=== PATIENT | female | born 1960 | race Caucasian/White ===

== ENCOUNTER 2020-01-03 16:20 | Outpatient (CLI) | payer BC, SELFPAY ==
--- NOTE | 2020-01-03 16:28 | XR_ITS ---
WS: [id number] XR tibia fibula LT 2V [id number] REASON FOR EXAM: FALL/CONTUSION LEFT LEG FINDINGS: On the upper one third of the anterior soft tissue of the tibia is swelling and air suggest ing a contused area with possible open lesion. The remaining tibia fibula are normal there is no fractures seen involving the knee are ankle are sha fts. XR/XR tibia fibula LT 2V 10188 IMPRESSION: Tissue injury involving the upper one third of the anterior tibia.
== END 2020-01-03 16:21 | disposition home or self-care (01) ==
LOC: RAD 16:25
PROVIDERS: Family Provider Nurse Practitioner Family; PCP Nurse Practitioner Family; Visit Provider Nurse Practitioner Family
DX: S80.12XA Contusion of left lower leg, initial encounter (principal); W19.XXXA Unspecified fall, initial encounter
CPT/HCPCS: 73590

== ENCOUNTER 2020-02-28 16:46 | Outpatient (CLI) | payer BC, SELFPAY ==
[2020-02-28 16:56] LABS: Add Urine Microscopic? NO
[2020-02-28 17:01] LABS: Basophils % 0.5 %; Eosinophils # 0.2 10^3/uL (0.0-0.8); Eosinophils % 2.4 %; Hematocrit 44.6 % (37.0-47.0); Hemoglobin 13.9 g/dL (11.5-15.3); Lymphocytes # 3.2 10^3/uL (0.8-4.8); Lymphocytes % 38.8 %; Mean Corpuscular HGB Conc 31.2 g/dL (30.0-36.0); Mean Corpuscular Hemoglobin 27.4 pg (28.0-34.0); Mean Platelet Volume 11.8 fL (7.4-10.4); Monocytes # 0.6 10^3/uL (0.2-0.9); Monocytes % 6.7 %; Neutrophils # 4.3 10^3/uL (1.8-7.7); Neutrophils % 51.4 %; Nucleated Red Blood Cells % 0 %; Platelet Count 350 10^3/cmm (130-400); Red Blood Count 5.07 10^6/uL (4.1-5.3); Red Cell Distribution Width 13.8 % (12.1-15.1); White Blood Count 8.4 10^3/uL (4.0-10.0)
[2020-02-28 17:56] LABS: Erythrocyte Sedimentation Rate 7 mm/hr (0-15)
[2020-02-28 19:28] LABS: Bilirubin Urine Neg (NEGATIVE); Blood Urine Neg (Negative); Glucose Urine UA Norm (Normal); Ketones Urine Negative (Negative); Leukocyte Esterase Urine Negative (Negative); Nitrate Urine Negative (Negative); Protein Urine Neg (Negative); Urine Appearance Clear (CLEAR); Urine Color Yellow (Yellow); Urobilinogen Urine Norm (Negative); pH Urine 5 (5-7)
[2020-02-29 01:56] LABS: Cortisol Random 7.13 mcg/dL (2.47-19.5)
[2020-02-29 02:20] LABS: Alanine Aminotransferase 46 U/L (0-33); Albumin Level 4.7 g/dL (3.5-5.2); Alkaline Phosphatase 85 IU/L (35-105); Anion Gap 20.9 (5-19); Aspartate Amino Transferase 34 U/L (0-32); Blood Urea Nitrogen 19 mg/dL (6-20); Calcium 9.8 mg/dL (8.5-10.5); Carbon Dioxide 25 mmol/L (22-29); Chloride 99 mmol/L (98-107); Cholesterol 216 mg/dL (0-200); Globulin 2.2 g/dL (1.3-4.6); Glomerular Filtration Rate 85.6 mL/min (90-130); Glucose 81 mg/dL (65-115); Osmolality Calculated 284 mOsm/kg (285-295); Potassium 5.9 mmol/L (3.5-5.1); Sodium 139 mmol/L (136-145); Thyroid Stimulating Hormone 2.07 uIU/mL (0.27-4.20); Total Bilirubin 0.3 mg/dL (0.15-1.2); Total Protein 6.9 g/dL (6.6-8.7)
[2020-02-29 15:15] LABS: Chol HDL Ratio 3.72 mg/dL (0.0-4.40); HDL Cholesterol 58 mg/dL (60-100); LDL Cholesterol 139 (0-100); LDL Cholesterol Calculated 131 mg/dL (50-129); LDL HDL Ratio 2.26 RATIO (0.00-3.22); Triglycerides 134 mg/dL (0-150)
[2020-03-01 08:31] LABS: T4 Total 6.8 mcg/dL (5.1-11.9)
[2020-03-01 12:23] LABS: Hepatitis A Antibody IgM Non-Reactive (Nonreactive); Hepatitis B Core IgM Non-Reactive (Nonreactive); Hepatitis B Surface Antigen Non-Reactive (Nonreactive); Hepatitis C Virus Antibody Non-Reactive (Nonreactive)
[2020-03-02 08:36] LABS: Anti-Nuclear Antibody Pattern Nuclear, Speckled; Anti-Nuclear Antibody Screen POSITIVE (NEGATIVE)
== END 2020-02-28 16:47 | disposition home or self-care (01) ==
LOC: LAB 16:48
PROVIDERS: PCP Nurse Practitioner Family; Visit Provider Family Medicine
DX: R53.81 Other malaise (principal); E03.9 Hypothyroidism, unspecified
CPT/HCPCS: 80053; 80061; 80074; 81003; 82465; 82533; 84436; 84443; 85025; 85651; 86038

== ENCOUNTER → 2020-08-25 12:38 | Outpatient (BNVA) | payer BC, SELFPAY | PROVIDERS: PCP Nurse Practitioner Family; Visit Provider Nurse Practitioner | DX: M77.8 Other enthesopathies, not elsewhere classified (principal) | CPT/HCPCS: 73630 ==

== ENCOUNTER 2021-01-02 12:46 | Outpatient (CLI) | payer BC, SELFPAY ==
--- NOTE | 2021-01-02 12:55 | MM_ITS ---
WS: [id number] BILATERAL DIGITAL SCREENING MAMMOGRAPHY WITH CAD CLINICAL INFORMATION: SCREENING HISTORY: Screening mammogram. No current complaints. COMPARISON: and June 30, 2013 TECHNIQUE: Bilateral CC and MLO views. FINDINGS: Scattered fibroglandular densities bilaterally. No suspicious focal mass, asymmetry, calcifications, or architectural distortion. No evidence of malignancy. A few punctate calcifications. Vascular and l ucent centered calcifications. MM/[place] [id number] IMPRESSION: BI-RADS: 2-Benign FOLLOW UP: 1 Year Follow-up Recommend return to annual screening mammography.
== END 2021-01-02 12:47 | disposition home or self-care (01) ==
LOC: RADSHAW 12:47
PROVIDERS: PCP Nurse Practitioner Family; Visit Provider Nurse Practitioner Family
DX: Z12.31 Encounter for screening mammogram for malignant neoplasm of breast (principal)
CPT/HCPCS: 77067

== ENCOUNTER 2021-02-12 13:04 | Outpatient (CLI) | payer BC, SELFPAY ==
--- NOTE | 2021-02-12 13:13 | US_ITS ---
WS: [id number] ULTRASOUND SOFT TISSUES LEFT lower extremity. HISTORY: CONTUSION OF LEFT LOWER LEG COMPARISON: None available. TECHNIQUE: 2-D and color Doppler imaging is submitted. Ultrasound is performed of the LEFT lower extremity in the area of pain and soft tissue abnormality. There is no ultrasound abnormality identified. No hematoma or fluid collection. US/US soft tissue/extremity [id number] IMPRESSION: Negative soft tissue ultrasound LEFT lower extremity.
--- NOTE | 2021-02-12 13:13 | USCV_ITS ---
Rocio Benitez Age: 61 Gender: F : 1960 Exam Date: 02/12/2021 13:29 Ordering Phys: Olga Piper NP Technologist: Mary Sutton Exam Location: [facility] [place] Indication: PAIN HISTORY: Lower extremity pain. PROCEDURES: Venous duplex imaging was performed in only the left lower extremity. The following venous structures were evaluated: common femoral vein, profunda vein, proximal portion of the greater saphenous vein, superficial femoral vein, and the popliteal vein. In addition, the posterior tibial and peroneal trunk were evaluated. Serial compression, augmentation maneuvers, and spectral Doppler flow evaluation were performed. FINDINGS: Normal 2-D Doppler and augmentation and compressibility throughout the lower extremity venous structures. Additional imaging through the proximal calf veins also reveals no thrombus. Limited evaluation of the greater saphenous vein is patent with no thrombus. CONCLUSIONS No DVT left lower extremity. Dr. Josselyn Sepulveda DO (Electronically Signed) Final Date: 12 February 2021 15:00 S
== END 2021-02-12 13:05 | disposition home or self-care (01) ==
LOC: RAD 13:10
PROVIDERS: PCP Nurse Practitioner Family; Visit Provider Nurse Practitioner Family
DX: S80.12XD Contusion of left lower leg, subsequent encounter (principal); M79.605 Pain in left leg; X58.XXXD Exposure to other specified factors, subsequent encounter
CPT/HCPCS: 76882; 93971

== ENCOUNTER 2021-07-25 07:54 | Outpatient (CLI) | payer BC, SELFPAY ==
--- NOTE | 2021-07-25 08:00 | US_ITS ---
WS: [id number] RIGHT UPPER QUADRANT ULTRASOUND HISTORY: ELEVATED LEVELS OF LIVER COMPARISON: None available. Liver: 20.5 cm in length. Moderately enlarged liver. Increased echogenicity and increased attenuation from hepatic steatosis. No bile duct dilatation or mass. Gallbladder: Normally distended gallbladder with no stones or wall thickening. CBD: 0.5 cm Pancreas: Tail is obscured by bowel gas. The body and head are negative. Right kidney: 11.3 cm in length. Normal size and echogenicity. No hydronephrosis or mass. Aorta and IVC: Unremarkable abdominal aorta and IVC. No ascites. US/US abdomen limited [id number] IMPRESSION: 1. Moderate hepatomegaly and hepatic steatosis. The entire liver cannot be rangel ged well due to attenuation. 2. Normal gallbladder.
== END 2021-07-25 07:55 | disposition home or self-care (01) ==
PROVIDERS: PCP Nurse Practitioner Family; Visit Provider Nurse Practitioner Family
DX: R74.01 Elevation of levels of liver transaminase levels (principal); R16.0 Hepatomegaly, not elsewhere classified; K76.0 Fatty (change of) liver, not elsewhere classified
CPT/HCPCS: 76705

== ENCOUNTER 2022-06-30 22:47 | Emergency (ER) | payer BC, SELFPAY ==
[2022-06-30 22:48] VITALS: BP 162/66; PULSE 104; RESP 26; TEMP 37.5; O2SAT 93; BMI 47.2
[2022-06-30 22:54] VITALS: BP 170/115; PULSE 98; RESP 26; O2SAT 93
--- NOTE | 2022-06-30 23:00 | XRR_ITS ---
PROCEDURE INFORMATION: Exam: XR Chest Exam date and time: 06/30/2022 11:04 PM Age: 62 years old Clinical indication: Pain; Chest pressure; Additional info: Cp TECHNIQUE: Imaging protocol: Radiologic exam of the chest. Views: 1 view. COMPARISON: No relevant prior studies available. FINDINGS: Lungs: See Heart/Mediastinum finding. Pleural spaces: Unremarkable. No pleural effusion. No pneumothorax. Heart/Mediastinum: Cardiomegaly and mild pulmonary vascular congestion. Small hiatal hernia suspected. Bones/joints: Unremarkable. XR/XR chest 1V portable [id number] IMPRESSION: 1. Negative for infiltrate. 2. Cardiomegaly and mild pulmonary vascular congestion. 3. Small hiatal hernia suspected.
--- NOTE | 2022-06-30 23:00 | ECG_ITS ---
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 Measurements Intervals [place] Rate: 97 P: 46 RI: 132 QRS: 51 QRSD: 83 T: 52 QT: 328 QTc: 417 Interpretive Statements SINUS RHYTHM No previous ECG available for comparison Electronically Signed On 07-01-2022 18:10:53 CDT by Compa Capone M.D. [id number]
[2022-06-30 23:05] VITALS: RESP 26
[2022-06-30] MEDS: ondansetron 2 mg/ML SDV 2 mL 4 MG IVP (23:05)
[2022-06-30] MEDS: fentaNYL 50 mcg/mL INJ 2mL 100 MCG IVP (23:05)
[2022-06-30 23:18] VITALS: PULSE 96; RESP 25; O2SAT 96
[2022-06-30 23:34] VITALS: PULSE 102; RESP 28; O2SAT 98
[2022-06-30 23:43] LABS: Basophils # 0.1 10^3/uL (0.0-0.1); Basophils % 0.3 %; Eosinophils # 0.2 10^3/uL (0.0-0.8); Eosinophils % 0.7 %; Hematocrit 44.3 % (37.0-47.0); Lymphocytes % 12.7 %; Mean Corpuscular HGB Conc 31.6 g/dL (30.0-36.0); Mean Corpuscular Hemoglobin 27.8 pg (28.0-34.0); Mean Corpuscular Volume 87.9 fl (81-99); Mean Platelet Volume 10.5 fL (7.4-10.4); Monocytes # 1.1 10^3/uL (0.2-0.9); Monocytes % 4.5 %; Neutrophils # 19.38 10^3/uL (1.8-7.7); Neutrophils % 81.2 %; Nucleated Red Blood Cells % 0 %; Platelet Count 403 10^3/cmm (130-400); Red Blood Count 5.04 10^6/uL (4.1-5.3); Red Cell Distribution Width 14.2 % (12.1-15.1); White Blood Count 23.9 10^3/uL (4.0-10.0)
[2022-07-01] VITALS (20 sets, daily range): BP systolic 105–170; BP diastolic 71–95; PULSE 89–120; RESP 19–28; O2SAT 90–99
[2022-07-01] MEDS: lidocaine 2% viscous 15 ML, aluminum-mag hydrox-simethicon 30 ML, sucralfate oral liq 1 GM PO
[2022-07-01] MEDS: HYDROmorphone 1 mg/mL INJ 1 mL IVP
[2022-07-01 00:02] LABS: INR 0.92 (0.8-1.2)
[2022-07-01 00:03] LABS: Partial Thromboplastin Time 27.9 SECONDS (23.9-36.7)
[2022-07-01 00:05] LABS: D Dimer 2.26 ug/mIFEU (0-0.59)
[2022-07-01 00:14] LABS: Troponin(5th) Baseline 6 ng/L (0-10)
--- NOTE | 2022-07-01 00:18 | CTR_ITS ---
PROCEDURE INFORMATION: Exam: CTA Chest With Contrast Exam date and time: 07/01/2022 12:33 AM Age: 62 years old Clinical indication: Pain; Chest pressure; Additional info: Chest pain TECHNIQUE: Imaging protocol: Computed tomographic angiography of the chest with contrast. 3D rendering (Not supervised by radiologist): MIP and/or 3D reconstructed images were created by the technologist. Radiation optimization: All CT scans at this facility use at least one of these dose optimization techniques: automated exposure control; mA and/or kV adjustment per patient size (includes targeted exams where dose is matched to clinical indication); or iterative reconstruction. Contrast material: OMNI 350; Contrast volume: 80 ml; Contrast route: INTRAVENOUS (IV); COMPARISON: CR (CHEST, ) 06/30/2022 11:04 PM RADIATION DOSE METRICS: Total DLP (mGy-cm): 557.99 FINDINGS: Pulmonary arteries: Normal. No pulmonary emboli. Aorta: Unremarkable. No aortic aneurysm. No aortic dissection. Lungs: Bibasilar atelectasis versus very minimal infiltrate. Pleural spaces: Unremarkable. No pneumothorax. No pleural effusion. Heart: Mild cardiomegaly. Lymph nodes: Unremarkable. No enlarged lymph nodes. Diaphragm: Moderate hiatal hernia. Liver: Hepatic steatosis. Bones/joints: Unremarkable. No acute fracture. Soft tissues: Unremarkable. CT/CT angio chest PE protcl [id number] IMPRESSION: 1. Negative for pulmonary embolus. 2. Bibasilar atelectasis versus very minimal infiltrate. 3. Moderate hiatal hernia. 4. Hepatic steatosis. 5. Mild cardiomegaly.
[2022-07-01 00:19] LABS: Alanine Aminotransferase 43 U/L (0-33); Albumin Level 4.2 g/dL (3.5-5.2); Alkaline Phosphatase 123 U/L (35-105); Anion Gap 17.3 (5-19); Aspartate Amino Transferase 29 U/L (0-32); Blood Urea Nitrogen 15 mg/dL (8-23); Calcium 9.5 mg/dL (8.5-10.5); Carbon Dioxide 26 mmol/L (22-29); Chloride 96 mmol/L (98-107); Creatine Phosphokinase 62 U/L (26-192); Globulin 3.1 g/dL (1.3-4.6); Glomerular Filtration Rate 72.9 mL/min (90-130); Glucose 148 mg/dL (65-115); NT Pro B Type Natriuretic Pept 22 pg/mL (0-125); Osmolality Calculated 284 mOsm/kg (285-295); Potassium 4.3 mmol/L (3.5-5.1); Sodium 135 mmol/L (136-145); Total Bilirubin 0.2 mg/dL (0.15-1.2); Total Protein 7.3 g/dL (6.6-8.7)
[2022-07-01] MEDS: haloperidol inj 5 mg/mL INJ 1 mL 3 MG IVP (00:27)
[2022-07-01] MEDS: HYDROmorphone 1 mg/mL INJ 1 mL 0.5 MG IVP (00:29)
--- NOTE | 2022-07-01 00:30 | PC.NURSE ---
patient taken to ct at this time.
[2022-07-01] MEDS: iohexol 350 mg/mL 100 mL Btl 95 ML IV (00:53)
--- NOTE | 2022-07-01 00:55 | W.ED.CHESTPA ---
HPI - Chest Pain General: Chief Complaint: Chest Pain Stated Complaint: Chest pain Time Seen by Provider: 06/30/22 22:56 Source: patient History of Present Illness: 62-year-old female presents with chest pain, mainly to the left upper chest, worse with inspiration. She is hyperventilating on exam and interview. Pain seem to start this afternoon, and is slowly worsened. She has not had this kind of pain before. She denies fever, vomiting, nausea. She has had some shortness of breath with it. MD complaint: chest pain Pertinent past history: other Onset (ago): hour(s) Timing of current episode: constant and increasing Onset: during rest Pain location: left chest Pain radiation: back Quality: sharp Relieving factors: nothing Exacerbating factors: inspiration Associated symptoms: Reports dyspnea; Deny abdominal pain, diaphoresis, fever(s), leg edema, nausea, palpitations, syncope or vomiting Review of Systems Const: Denies: fever(s) or diaphoresis ENMT: Denies: throat pain Card: Reports: chest pain; Denies: palpitations or syncope Resp: Reports: dyspnea GI: Denies: abdominal pain, nausea or vomiting Musc: Reports: back pain; Denies: neck pain PFSH ED PFSH: Social History Smoking and tobacco status: never smoked Physical Exam Const: GENERAL APPEARANCE: cooperative, in distress and anxious; not frail appearing NUTRITIONAL APPEARANCE: obese HENMT: COMMON NORMALS: normocephalic and atraumatic HEAD & SCALP: normocephalic and atraumatic Eye: COMMON NORMALS: Equal, round and reactive pupils present and EOMs intact bilaterally PUPIL: Yes Equal, round and reactive pupils present Neck/C-Spine: GENERAL: Yes trachea midline Chest: CHEST: Yes Symmetrical chest wall rise Resp: COMMON NORMALS: clear to auscultation bilaterally EFFORT & INSPECTION: Yes tachypneic, Yes respiratory distress and Yes uses accessory muscles AUSCULTATION: clear to auscultation bilaterally Cardio: COMMON NORMALS: regular rhythm RATE: tachycardic RHYTHM: regular rhythm GI: COMMON NORMALS: Soft to palpation PALPATION: Yes Soft to palpation Extremity: COMMON NORMALS: no pedal edema Neuro: CORINA COMA SCALE: document GCS findings Waggoner coma scale eye opening: Spontaneous Waggoner coma scale verbal response: Orientated Waggoner coma scale motor response: Obey commands Waggoner coma scale total score: 15 Course Vital Signs: Vital signs: Vital Signs Temperature 99.5 F 06/30/22 22:48 Pulse Rate 101 H 07/01/22 04:59 Respiratory Rate 19 H 07/01/22 04:59 Blood Pressure 112/78 07/01/22 04:59 Pulse Oximetry 92 07/01/22 04:59 Oxygen Delivery Me thod 07/01/22 04:39 Oxygen Flow Rate 2 07/01/22 02:30 MDM - Chest Pain Medical Decision Making Oxygen saturations are 90 to 93% now on room air. This patient came in in significant distress, essentially in panic. It took a significant amount of pain medication as well as IV haloperidol to calm her breathing, and control her pain. Pain is improved now. She was placed on oxygen for a bit, and is now breathing room air. Blood pressure 105/84, saturations 92% on room air. Heart rate 100. Her white blood cell count is 23.9 with 80% neutrophils. Chest x-ray is negative for infiltrate. D-dimer was significantly high. CTA of the chest is performed, and is free of infiltrate, free of pulmonary embolus. COVID PCR is performed, and is positive for rhinovirus. Troponin did not change significantly at 2 hours. Her EKG did not show significant ST change. This patient has reproducible chest wall pain. Her pain is under better control. Toradol seemed to help as well. She is given a dose of steroids here. She will be treated for bronchitis with an inhaler, steroids, and pain medication for the chest wall pain. Lab Data : 06/30/22 23:34 06/30/22 23:34 Radiology Impressions Chest X-Ray 06/30/22 23:00 IMPRESSION: 1. Negative for infiltrate. 2. Cardiomegaly and mild pulmonary vascular congestion. 3. Small hiatal hernia suspected. Chest CTA 07/01/22 00:18 IMPRESSION: 1. Negative for pulmonary embolus. 2. Bibasilar atelectasis versus very minimal infiltrate. 3. Moderate hiatal hernia. 4. Hepatic steatosis. 5. Mild cardiomegaly. Laboratory Results WBC 23.9 10^3/uL (4.0-10.0) H 06/30/22 23:34 Corrected WBC Cancelled 06/30/22 23:08 RBC 5.04 10^6/uL (4.1-5.3) 06/30/22 23:34 Hgb 14.0 g/dL (11.5-15.3) 06/30/22 23:34 Hct 44.3 % (37.0-47.0) 06/30/22 23:34 MCV 87.9 fl (81-99) 06/30/22 23:34 MCH 27.8 pg (28.0-34.0) L 06/30/22 23:34 MCHC 31.6 g/dL (30.0-36.0) 06/30/22 23:34 RDW 14.2 % (12.1-15.1) 06/30/22 23:34 Plt Count 403 10^3/cmm (130-400) H 06/30/22 23:34 MPV 10.5 fL (7.4-10.4) H 06/30/22 23:34 Gran % Cancelled 06/30/22 23:08 Neut % (Auto) 81.2 % 06/30/22 23:34 Lymph % (Auto) 12.7 % 06/30/22 23:34 Louisa % (Auto) 4.5 % 06/30/22 23:34 Eos % (Auto) 0.7 % 06/30/22 23:34 Baso % (Auto) 0.3 % 06/30/22 23:34 Neut # (Auto) 19.38 10^3/uL (1.8-7.7) H 06/30/22 23:34 Lymph # (Auto) 3.0 10^3/uL (0.8-4.8) 06/30/22 23:34 Louisa # (Auto) 1.1 10^3/uL (0.2-0.9) H 06/30/22 23:34 Eos # (Auto) 0.2 10^3/uL (0.0-0.8) 06/30/22 23:34 Baso # (Auto) 0.1 10^3/uL (0.0-0.1) 06/30/22 23:34 Absolute Gran (auto) Cancelled 06/30/22 23:08 Nucleated RBC % (auto) 0 % 06/30/22 23:34 Nucleated RBCs # 0.0 /100WBC 06/30/22 23:34 PT 12.70 SECONDS (12.1-14.9) 06/30/22 23:34 INR 0.92 (0.8-1.2) 06/30/22 23:34 APTT 27.9 SECONDS (23.9-36.7) 06/30/22 23:34 D-Dimer 2.26 ug/mIFEU (0-0.59) H 06/30/22 23:34 Sodium 135 mmol/L (136-145) L 06/30/22 23:34 Potassium 4.3 mmol/L (3.5-5.1) 06/30/22 23:34 Chloride 96 mmol/L (98-107) L 06/30/22 23:34 Carbon Dioxide 26 mmol/L (22-29) 06/30/22 23:34 Anion Gap 17.3 (5-19) 06/30/22 23:34 BUN 15 mg/dL (8-23) 06/30/22 23:34 Creatinine 0.8 mg/dL (0.5-0.9) 06/30/22 23:34 GFR Calculation 72.9 mL/min (90-130) L 06/30/22 23:34 Glucose 148 mg/dL (65-115) H 06/30/22 23:34 Calculated Osmolality 284 mOsm/kg (285-295) L 06/30/22 23:34 Calcium 9.5 mg/dL (8.5-10.5) 06/30/22 23:34 Total Bilirubin 0.2 mg/dL (0.15-1.2) 06/30/22 23:34 AST 29 U/L (0-32) 06/30/22 23:34 ALT 43 U/L (0-33) H 06/30/22 23:34 Alkaline Phosphatase 123 U/L (35-105) H 06/30/22 23:34 Creatine Kinase 62 U/L (26-192) 06/30/22 23:34 Troponin T Baseline 6 ng/L (0-10) 06/30/22 23:34 Troponin T 120 Minute 6.55 ng/L (0-10) 07/01/22 01:56 Delta Troponin T 0.55 ABS# (0-10) 07/01/22 01:56 NT-Pro-B Natriuret Pep 22 pg/mL (0-125) 06/30/22 23:34 Total Protein 7.3 g/dL (6.6-8.7) 06/30/22 23:34 Albumin 4.2 g/dL (3.5-5.2) 06/30/22 23:34 Globulin 3.1 g/dL (1.3-4.6) 06/30/22 23:34 Urine Color Yellow (Yellow) 07/01/22 01:46 Urine Appearance Clear (CLEAR) 07/01/22 01:46 Urine pH 5 (5-7) 07/01/22 01:46 Ur Specific Roann 1.010 (1.005-1.030) 07/01/22 01:46 Urine Protein Trace (Negative) 07/01/22 01:46 Urine Glucose (UA) Norm (Normal) 07/01/22 01:46 Urine Ketones Negative (Negative) 07/01/22 01:46 Urine Blood Neg (Negative) 07/01/22 01:46 Urine Nitrate Negative (Negative) 07/01/22 01:46 Urine Bilirubin Neg (Negative) 07/01/22 01:46 Urine Urobilinogen Neg mg/dL (Negative) 07/01/22 01:46 Ur Leukocyte Esterase Trace (Negative) H 07/01/22 01:46 Urine RBC 0-4 /hpf (0-2) H 07/01/22 01:46 Urine WBC 5-10 /hpf (0-5) H 07/01/22 01:46 Ur Squamous Epith Cells 0-4 /hpf (0-5) H 07/01/22 01:46 Amorphous Sediment Not Reportable 07/01/22 01:46 Urine Bacteria Trace /hpf (NONE) 07/01/22 01:46 Urine Mucus Trace /hpf 07/01/22 01:46 Urine Opiates Screen Positive ng/mL (Negative) H 07/01/22 01:46 Ur Barbiturates Screen Negative ng/mL (Negative) 07/01/22 01:46 Ur Phencyclidine Scrn Negative ng/mL (Negative) 07/01/22 01:46 Ur Amphetamines Screen Negative ng/mL (Negative) 07/01/22 01:46 U Benzodiazepines Scrn Negative ng/mL (Negative) 07/01/22 01:46 Urine Cocaine Screen Negative ng/mL (Negative) 07/01/22 01:46 U Marijuana (THC) Screen Negative ng/mL (Negative) 07/01/22 01:46 Coronavirus 229E (PCR) Not detected (NOT DETECT) 06/30/22 23:46 Human Metapneumovir PCR Not detected (NOT DETECT) 07/01/22 01:34 Entero/Rhino (PCR) Detected (NOT DETECT) A 07/01/22 01:34 SARS-CoV-2 (PCR) Not detected (NOT DETECT) 06/30/22 23:46 Discharge Plan Discharge Patient Disposition: Home Clinical Impression: Atypical chest pain, Bronchitis Condition: Stable Prescriptions: New hydrocodone-acetaminophen 5-325 mg tablet 1 tab PO Q8H PRN (Reason: pain) Qty: 7 0RF Medrol (Case) 4 mg tablets,dose pack See Rx Instructions .ROUTE .COMPLEX Qty: 21 0RF Rx Instructions: orally per package directions albuterol sulfate 90 mcg/actuation HFA aerosol inhaler 2 inh INHALATION Q4H PRN (Reason: shortness of breath or wheezing) Qty: 6.7 1RF No Action levothyroxine 25 mcg capsule 25 mcg PO DAILY montelukast [Singulair] 10 mg tablet 10 mg PO DAILY duloxetine [Cymbalta] 30 mg capsule,delayed release(DR/EC) 30 mg PO DAILY Discharge Orders: Discharge ED (Routine); Ordered 07/01/22 Ordered By: Yash Ovalles Referrals: Olga Piper, CUSTOMER SERVICE ATTENDANT [Primary Care Provider] - 1-3 days Patient Instructions: Chest Pain (ED), Acute Bronchitis (ED), Chest Wall Pain (ED), Opioid Safety Activity Restrictions/Additional Instructions: Return for worsening pain or shortness of breath despite treatment, inability to control temperatures, any other concerning symptoms. See your doctor this coming week. Coding Level of Care Code ED Hand Bookbinder for Christina Fwd Exam Comprehensive
--- NOTE | 2022-07-01 01:00 | ECG_ITS ---
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 Measurements Intervals [place] Rate: 115 P: 69 [place]: 140 QRS: 60 QRSD: 84 T: 60 QT: 321 QTc: 445 Interpretive Statements SINUS TACHYCARDIA Compared to ECG 06/30/2022 22:52:46 Sinus rhythm no longer present Electronically Signed On 07-01-2022 18:13:53 CDT by Compa Capone M.D. [email or web address] [facility] Pariswhitfield medical surgical hospitalAnimal Cell Therapiesohiohealth pickerington methodist [email or web address] [id number]
[2022-07-01] MEDS: metoprolol tartrate 1 mg/1 mL SDV 5 mL 5 MG IVP (01:30)
--- NOTE | 2022-07-01 01:30 | PC.NURSE ---
at 0115 patient noted to have cool dusky nail beds, o2 sat 88%. warm blankets placed on hands and body, 2l nc applied. o2 saturation increased to 94%. dr rowland notified of vital signs 88% to 94% with o2 2l per min nc, hr 120. new orders received.
[2022-07-01 01:34] LABS: Adenovirus Not Detected (NOT DETECT); Chlamydia Pneumoniae Not Detected (NOT DETECT); Coronavirus 229E,HKU1,NL63,OC4 Not Detected (NOT DETECT); Human Metapneumovirus Not Detected (NOT DETECT); Human Rhinovirus/Enterovirus Detected (NOT DETECT); Influenza A Not Detected (NOT DETECT); Influenza A H1 Not Detected (NOT DETECT); Influenza A H1-2009 Not Detected (NOT DETECT); Influenza A H3 Not Detected (NOT DETECT); Influenza B Not Detected (NOT DETECT); Mycoplasma Pneumoniae Not Detected (NOT DETECT); Parainfluenza Virus Type 1 Not Detected (NOT DETECT); Parainfluenza Virus Type 2 Not Detected (NOT DETECT); Parainfluenza Virus Type 3 Not Detected (NOT DETECT); Parainfluenza Virus Type 4 Not Detected (NOT DETECT); Respiratory Syncytial Virus A Not Detected (NOT DETECT); Respiratory Syncytial Virus B Not Detected (NOT DETECT); SARS-COV-2 Not Detected (NOT DETECT)
[2022-07-01 01:35] LABS: Human Metapneumovirus Not Detected (NOT DETECT); Human Rhinovirus/Enterovirus Detected (NOT DETECT); Results from Genmark
[2022-07-01 02:13] LABS: Amphetamines Screen Urine Negative (Negative); Barbiturates Screen Urine Negative (Negative); Benzodiazepines Screen Urine Negative (Negative); Cocaine Screen Urine Negative (Negative); Opiate Screen Urine Positive (Negative); PCP Screen Urine Negative (Negative); THC Screen Urine Negative (Negative)
[2022-07-01 02:18] LABS: Troponin 5 2HR 6.55 ng/L (0-10)
[2022-07-01 02:27] LABS: Troponin 5 2HR Delta 0.55 ABS# (0-10)
[2022-07-01] MEDS: dexamethasone 4 mg/mL INJ 8 MG IVP (02:31)
--- NOTE | 2022-07-01 02:32 | PC.NURSE ---
patient o2 nc removed to assess oxygenation status on room air. see vs charting.
[2022-07-01] MEDS: ketorolac 30 mg/mL INJ 15 MG IVP (02:42)
--- NOTE | 2022-07-01 02:46 | PC.NURSE ---
lab contacted to clarify status of ua. states that urine is in lab, and that they will start running sample immediately.
[2022-07-01 02:59] LABS: Bilirubin Urine Neg (Negative); Blood Urine Neg (Negative); Glucose Urine UA Norm (Normal); Ketones Urine Negative (Negative); Nitrate Urine Negative (Negative); Protein Urine Trace (Negative); Urine Appearance Clear (CLEAR); Urine Color Yellow (Yellow); pH Urine 5 (5-7)
[2022-07-01 03:00] LABS: Add Urine Culture? No; Add Urine Microscopic? YES; Bacteria Urine TRACE /hpf; Leukocyte Esterase Urine Trace (Negative); Mucus Urine TRACE /hpf; RBC Urine 0-4 /hpf (0-2); Squamous Epithelial Cell Urine 0-4 /hpf (0-5); Urobilinogen Urine Neg (Negative)
== END 2022-07-01 05:00 | disposition home or self-care (01) ==
PROVIDERS: Emergency Provider Emergency Medicine; PCP Nurse Practitioner Family
DX: R07.89 Other chest pain (principal); J40 Bronchitis, not specified as acute or chronic
CPT/HCPCS: 51701; 71045; 71275; 80053; 80306; 81001; 82550; 83880; 84484; 85025; 85378; 85610; 85730; 87635; 87801; 93005; 96374; 96375; 96376; 99285; J1100; J1170; J1630; J1885; J2405; J3010; J3490; Q9967

== ENCOUNTER 2023-10-01 13:15 | Outpatient (CLI) | payer BC, SELFPAY ==
--- NOTE | 2023-10-01 13:19 | XR_ITS ---
WS: [id number] Exam: XR [id number] Date/Time of Exam: 10/01/2023 1:27 PM Reason For Exam: ABD PAIN No bowel obstruction or free air. Large amount retained stool in the transverse colon and splenic fle xure. No sign of organ enlargement. Numerous phleboliths in the pelvis. Bony structures are intact. IMPRESSION: 1. No acute abdominal process. 2. Constipation.
== END 2023-10-01 13:16 | disposition home or self-care (01) ==
LOC: RAD 13:16
PROVIDERS: PCP Nurse Practitioner Family; Visit Provider Nurse Practitioner Family
DX: K59.00 Constipation, unspecified (principal)
CPT/HCPCS: 74018